=== PATIENT | female | born 1965 | race Caucasian/White ===

== ENCOUNTER 2020-11-22 12:34 | Outpatient (REF) | payer BC, SELFPAY ==
[2020-11-25 12:36] LABS: HPV mRNA E6/E7 rflx Not Detected (Not Detected)
== END 2020-11-22 12:35 | disposition home or self-care (01) ==
LOC: HO.LAB 12:34
PROVIDERS: PCP Internal Medicine; Visit Provider Obstetrics & Gynecology
DX: Z01.419 Encounter for gynecological examination (general) (routine) without abnormal findings (principal)
CPT/HCPCS: 36415; 87624; 88142

== ENCOUNTER 2021-02-22 14:13 | Outpatient (REF) | payer BC, SELFPAY ==
--- NOTE | ~2021-02-22 | MM_ITS ---
EXAMINATION: MM SCREENING DIGITAL BREAST TOMOSYNTHESIS, BILATERAL CLINICAL INFORMATION: Screening. Asymptomatic. The lifetime risk of breast cancer based on the Tyrer-Cuzick Model is 5%. COMPARISON: Mammography: 11/12/2019, 10/16/2018, 08/15/2017, 07/11/2016. TECHNIQUE: Digital mammography is performed in craniocaudal and mediolateral oblique views along with computer-aided detection (CAD). Digital breast tomosynthesis is performed in implant-displaced craniocaudal and implant-displaced mediolateral oblique views along with computer-aided detection (CAD). Synthesized 2D images are generated from the tomosynthesis. FINDINGS: There are scattered areas of fibroglandular density (ACR BI-RADS breast composition Category b). The implant margins are smooth and similar to prior studies. Left breast shows no developing density or interval mass or architectural abnormality. Neither breast shows abnormal calcifications. The axilla and skin contours are unremarkable. The right breast has subtle asymmetric density mid medial breast 4:00 position, suspect incompletely compressed glandular tissue. Patient will be recalled to further characterize. MM/MM tomosynthesis screen imp BI IMPRESSION: 1. Right: Subtle asymmetric density mid medial breast 4:00 position, possibly incompletely compressed glandular tissue. 2. Left: No mammographic evidence of malignancy. ASSESSMENT: BI-RADS 0: Incomplete - Need Additional Imaging Evaluation RECOMMENDATION: 1. Additional views of the right breast (3-D implant displaced spot CC; 3-D implant displaced rolled CC; 3-D implant displaced ML). 2. Targeted ultrasound if warranted after review of the additional views. 3. Radiology department staff will contact the patient for additional imaging. This patient's information was entered into a reminder system with a target due date for their next mammogram.
== END 2021-02-22 14:14 | disposition home or self-care (01) ==
LOC: HO.MAMMO 14:13
PROVIDERS: PCP Internal Medicine; Visit Provider Internal Medicine
DX: Z12.31 Encounter for screening mammogram for malignant neoplasm of breast (principal)
CPT/HCPCS: 77063; 77067

== ENCOUNTER 2021-03-07 12:54 | Outpatient (REF) | payer BC, SELFPAY ==
--- NOTE | ~2021-03-07 | MM_ITS ---
EXAMINATION: MM DIAGNOSTIC DIGITAL BREAST TOMOSYNTHESIS, RIGHT CLINICAL INFORMATION: Recall from screening for subtle asymmetric density mid medial right breast possibly incompletely compressed glandular tissue. COMPARISON: Mammography: 02/22/2021, 11/12/2019 TECHNIQUE: Digital breast tomosynthesis is performed. 2D images are generated from the tomosynthesis. The following views are obtained: 3-D implant displaced rolled CC x2, 3-D implant displaced spot CC. FINDINGS: There are scattered areas of fibroglandular density (ACR BI-RADS breast composition Category b). The additional views show no persistent asymmetric density. There is normal fibroglandular tissue. No mass or architectural abnormality or developing density. Results are discussed with the patient at time of visit. MM/MM tomosynthesis added views R IMPRESSION: Additional views are unremarkable. No persistent asymmetric density. ASSESSMENT: BI-RADS 1: Negative RECOMMENDATION: Routine annual mammography screening. This patient's information was entered into a reminder system with a target due date for their next mammogram.
== END 2021-03-07 12:55 | disposition home or self-care (01) ==
LOC: HO.MAMMO 12:54
PROVIDERS: Visit Provider Internal Medicine
DX: R92.2 Inconclusive mammogram (principal)
CPT/HCPCS: 77061; 77065

== ENCOUNTER 2022-03-01 13:55 | Outpatient (REF) | payer BC, SELFPAY ==
--- NOTE | ~2022-03-01 | MM_ITS ---
EXAMINATION: MM SCREENING DIGITAL BREAST TOMOSYNTHESIS, BILATERAL CLINICAL INFORMATION: Screening. Asymptomatic. The lifetime risk of breast cancer based on the Tyrer-Cuzick Model is 7%. COMPARISON: Mammography: 03/07/2021, 02/22/2021, 11/12/2019, 10/16/2018 TECHNIQUE: Digital mammography is performed in craniocaudal and mediolateral oblique views along with computer-aided detection (CAD). Digital breast tomosynthesis is performed in implant-displaced craniocaudal and implant-displaced mediolateral oblique views along with computer-aided detection (CAD). Synthesized 2D images are generated from the tomosynthesis. FINDINGS: There are scattered areas of fibroglandular density (ACR BI-RADS breast composition Category b). There are no significant masses, abnormal calcifications, or other abnormalities. There are bilateral implants. Implant contours are smooth and similar to prior studies. Parenchymal pattern is similar to prior exams. No significant changes. MM/MM tomosynthesis screen imp BI IMPRESSION: No mammographic evidence of malignancy. ASSESSMENT: BI-RADS 1: Negative RECOMMENDATION: Routine annual mammography screening. This patient's information was entered into a reminder system with a target due date for their next mammogram.
== END 2022-03-01 13:56 | disposition home or self-care (01) ==
LOC: HO.MAMMO 13:55
PROVIDERS: PCP Internal Medicine; Visit Provider Internal Medicine
DX: Z12.31 Encounter for screening mammogram for malignant neoplasm of breast (principal)
CPT/HCPCS: 77063; 77067

== ENCOUNTER 2022-08-19 14:52 | Outpatient (REF) | payer BC, SELFPAY ==
[2022-08-22 01:57] LABS: HPV mRNA E6/E7 rflx Not Detected (Not Detected)
== END 2022-08-19 14:53 | disposition home or self-care (01) ==
LOC: HO.LNP 14:52
PROVIDERS: Visit Provider Obstetrics & Gynecology
DX: Z01.419 Encounter for gynecological examination (general) (routine) without abnormal findings (principal); Z11.51 Encounter for screening for human papillomavirus (HPV); M54.9 Dorsalgia, unspecified
CPT/HCPCS: 87086; 87624; 88142

== ENCOUNTER 2022-10-14 14:36 | Outpatient (REF) | payer BC, SELFPAY | END 2022-10-14 14:37 | disposition home or self-care (01) | LOC: HO.LNP 14:36 | PROVIDERS: Visit Provider Obstetrics & Gynecology | DX: Z12.4 Encounter for screening for malignant neoplasm of cervix (principal); R87.615 Unsatisfactory cytologic smear of cervix | CPT/HCPCS: 88142 ==

== ENCOUNTER 2023-04-04 14:18 | Outpatient (REF) | payer BC, SELFPAY ==
--- NOTE | ~2023-04-04 | MM_ITS ---
EXAMINATION: MM SCREENING DIGITAL BREAST TOMOSYNTHESIS, BILATERAL CLINICAL INFORMATION: Screening. Asymptomatic. The lifetime risk of breast cancer based on the Tyrer-Cuzick Model is 5%. COMPARISON: Multiple prior exams including most recent 03/01/2022. TECHNIQUE: Digital mammography is performed in craniocaudal and mediolateral oblique views along with computer-aided detection (CAD). Digital breast tomosynthesis is performed in implant-displaced craniocaudal and implant-displaced mediolateral oblique views along with computer-aided detection (CAD). Synthesized 2D images are generated from the tomosynthesis. FINDINGS: There are scattered areas of fibroglandular density (ACR BI-RADS breast composition Category b). There are bilateral implants with smooth contours are similar to prior studies. There are no significant masses, abnormal calcifications, or other abnormalities. No developing density or interval architectural abnormality. There is some scattered minor scarring similar to prior exams. The axilla and skin contours are unremarkable. No significant changes. MM/MM tomosynthesis screen imp BI IMPRESSION: No mammographic evidence of malignancy. ASSESSMENT: BI-RADS 2: Benign RECOMMENDATION: Routine annual mammography screening. This patient's information was entered into a reminder system with a target due date for their next mammogram.
== END 2023-04-04 14:19 | disposition home or self-care (01) ==
LOC: HO.MAMMO 14:18
PROVIDERS: Visit Provider Nurse Practitioner Family
DX: Z12.31 Encounter for screening mammogram for malignant neoplasm of breast (principal)
CPT/HCPCS: 77063; 77067

== ENCOUNTER 2024-01-01 13:40 | Outpatient (AMB) | payer BC, SELFPAY ==
--- NOTE | 2024-01-01 13:59 | A.OFFVIS_ITS ---
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 No complaints. Last Pap/HPV was negative in 10/17 Last Mammogram was BI-RADS 2 in 04/18 Last Colonoscopy was a year ago, the recommendation was to repeat in 7 years [facility] Medical History delivery delivered Acid reflux Surgical History Hx of section Family History Father Lung cancer Prostate cancer Mother COPD (chronic obstructive pulmonary disease) Social History Household Members: Spouse Housing: House Alcohol intake: current Alcohol intake frequency: holidays/special occasions only Patient Tobacco Use Status: Never used Tobacco Patient : No service: No Current occupational status: employed Current occupation: assistant sales manager Sexual orientation: Straight/Heterosexual Gender identity: Female Female Reproductive History Menstrual Age of Menarche: 16 control method: none Total pregnancies: 4 Full term: 2 Number of Living Children: 2 Ab spontaneous: 2 Date of last pap smear: 10/15/22 Date of Mammogram: 04/04/23 Review of Systems Const All systems reviewed & are unremarkable except as noted in HPI and below Card Reports as per HPI Resp Reports as per HPI GI Reports as per HPI and Reports no additional complaints Reports as per HPI Physical Exam Vital Signs: Last Vital Signs BP 110/62 01/01/24 14:03 BMI result Body Mass Index 25.6 Const General: cooperative, healthy appearing and comfortable Chest Chest palpation & inspection: normal inspection of the chest and normal palpation of entire chest wall Breast/axilla inspection: normal inspection of the breasts and normal inspection of the axillae Breast/axilla palpation: normal palpation of the breasts, normal palpation of the axillae and no axillary lymphadenopathy Resp Effort & Inspection: normal respiratory effort Auscultation: clear to auscultation bilaterally Percussion: percussion normal Cardio Palpation: normal PMI Rate: regular rate Rhythm: regular rhythm Heart sounds: no murmurs and no rubs Peripheral pulses: Peripheral pulses 2+ throughout GI Inspection: Yes normal to inspection Palpation (GI): Soft to palpation, nontender, no guarding, not rigid and No hepatosplenomegaly present Percussion: Yes normal to percussion Auscultation: normal bowel sounds Rectal Exam - Female: deferred General: Yes bladder normal to palpation External Female Exam: No lesion Speculum Exam - Vagina: normal appearance of the vagina, normal palpation, normal vaginal discharge and not erythematous Speculum Exam - Cervix: normal appearance of the cervix and normal palpation Bimanual exam- vagina & uterus: normal bimanual exam, normal palpation, uterine size normal, bladder normal to palpation, consistency normal and normal palpation Bimanual Exam- Adnexa, other: normal adnexae, no masses and no tenderness Assessment & Plan Assessment & Plan (1) Well woman exam: Code(s): Z01.419 - Encounter for gynecological examination (general) (routine) without abnormal findings Plan: Co testing not indicated this year. Counseled the patient about the recommended dietary allowance of 1200 mg of Calcium & 600 IU of vitamin D. Instructions given the patient to schedule next screening Mammogram in 04/19. The patient was instructed to perform monthly self-breast exams and schedule annual exam in a year. All questions answered and the patient verbalized understanding. Coding Level of Care Code Est Pt Prev Care 40-64y(65932) Diagnoses Well woman exam Z01.419
[2024-01-01 14:03] VITALS: BP 110/62; BMI 25.6
== END 2024-01-01 14:26 | disposition home or self-care (01) ==
LOC: HO.HWS 13:41
PROVIDERS: PCP Internal Medicine; Visit Provider Obstetrics & Gynecology
DX: Z01.419 Encounter for gynecological examination (general) (routine) without abnormal findings (principal)
CPT/HCPCS: 99396

== ENCOUNTER → 2024-01-01 13:40 | Outpatient (BNVA) | payer BC, SELFPAY | PROVIDERS: PCP Internal Medicine; Visit Provider Obstetrics & Gynecology ==

== ENCOUNTER 2024-04-09 14:20 | Outpatient (REF) | payer BC, SELFPAY ==
--- NOTE | ~2024-04-09 | MM_ITS ---
EXAMINATION: MM SCREENING DIGITAL BREAST TOMOSYNTHESIS, BILATERAL WITH BREAST IMPLANTS CLINICAL INFORMATION: Screening. Asymptomatic. COMPARISON: Mammography: This study is compared with prior mammography dating back to 2020. TECHNIQUE: Digital mammography is performed in craniocaudal and mediolateral oblique views along with computer-aided detection (CAD). Digital breast tomosynthesis is performed in implant-displaced craniocaudal and implant-displaced mediolateral oblique views along with computer-aided detection (CAD). Synthesized 2D images are generated from the tomosynthesis. FINDINGS: There are scattered areas of fibroglandular density (ACR BI-RADS breast composition Category b). There are bilateral, mammographically intact silicone breast implants. There are no significant masses, abnormal calcifications, or other abnormalities. MM/MM tomosynthesis screen imp BI IMPRESSION: There are no significant changes from prior study. ASSESSMENT: BI-RADS BI-RADS 1 - Negative RECOMMENDATION: Routine annual mammography screening. 1 year F/U This patient's information was entered into a reminder system with a target due date for their next mammogram.
== END 2024-04-09 14:21 | disposition home or self-care (01) ==
LOC: HO.MAMMO 14:20
PROVIDERS: PCP Nurse Practitioner Family; Visit Provider Nurse Practitioner Family
DX: Z12.31 Encounter for screening mammogram for malignant neoplasm of breast (principal)
CPT/HCPCS: 77063; 77067

== ENCOUNTER → 2024-04-09 14:30 | Outpatient (BNV) | payer BC, SELFPAY | PROVIDERS: PCP Nurse Practitioner Family; Visit Provider Radiology Diagnostic Radiology | DX: Z12.31 Encounter for screening mammogram for malignant neoplasm of breast (principal) | CPT/HCPCS: 77063; 77067 ==

== ENCOUNTER 2025-04-15 14:32 | Outpatient (REF) | payer BC, SELFPAY ==
--- NOTE | ~2025-04-15 | MM_ITS ---
EXAMINATION: MM SCREENING DIGITAL BREAST TOMOSYNTHESIS, BILATERAL CLINICAL INFORMATION: Screening. Asymptomatic. COMPARISON: Mammography: Comparison is made with relevant avialable priors. TECHNIQUE: Digital mammography is performed in craniocaudal and mediolateral oblique views along with computer-aided detection (CAD). Digital breast tomosynthesis is performed in implant-displaced craniocaudal and implant-displaced mediolateral oblique views along with computer-aided detection (CAD). FINDINGS: There are scattered areas of fibroglandular density (ACR BI-RADS breast composition Category b). Bilateral retropectoral silicone implants are normal-appearing. There are no significant masses, abnormal calcifications, or other abnormalities. MM/MM tomosynthesis screen imp BI IMPRESSION: There are no significant changes from prior study. ASSESSMENT: BI-RADS BI-RADS 2 - Benign Findings RECOMMENDATION: Routine annual mammography screening. 1 year F/U This patient's information was entered into a reminder system with a target due date for their next mammogram. Electronically signed by: Stephanie Monteiro DO 04/22/2025 08:34 AM EDT
--- OUTSIDE RECORDS SUMMARY | 2025-04-15 14:35 | XMS_ITS | Data Portability ---
Author Organization [place] - [facility] Address [address] [place] [address] Care Team Providers Care Associate Professor Of Criminal Justice Name Role Phone ROBBY ODONNELL Primary Care Provider Assessment No assessment recorded. Plan of Treatment Reminders Order Date Submit Date Provider Last Modified By Organization Details Last Modified Time Details Appointments None recorded. Lab None recorded. Referral None recorded. Procedures None recorded. Surgeries None recorded. Imaging XR, knee, 4 or more view - room 208 rt knee 4v cw 2024 025 [facility] [address] [facility], [facility] [address], [address], 5 14:04:30 Medication Orders doxycycline hyclate 100 mg tablet 2024 025 [facility] #[id number], [address] [facility] [place], [address], 5 16:13:11 Patient TargetsNo targets recorded. Patient InstructionsNo instructions recorded. Reason for Referral None Reported. Results Created Date Observation Date Name Description Value Unit Range Abnormal Flag Note LastModifiedBy Organization Detail LastModifiedTime 02/29/20 25 02/28/2025 XR, knee, 4 or more view http:/ [email or web address] ?Encry pted=s hAaTro YD8dLq bEUv6g %2BXZw aYqtaq 0bqfl% 2Fg9IQ a4ajBk vP9nXo QUaueC m3YtLR FvZlgJ JJ8mAn HZtai3 9q5770 AC0Kla niMVqG iKiQtr MwF INTERFACE [facility] Office [address] [facility] [address], [place], [address], 02/28/2025 15:38:37 02/29/2002/28/2025 XR, knee, 4 or more view [email or web address] ?Encry pted=s hAaTro YD8dLq bEUv6g %2BXZw aYqtaq 0bqfl% 2Fg9IQ a4ajBk vP9nXo QUaueC m3YtLR FvZlgJ JJ8mAn HZtai3 8l1794 AC0Kla niMVqG iKiQtr MwF INTERFACE [facility] [address] [facility] [address], [place], [address], 02/28/2025 15:38:39 Result Notes Documentation Provider Name and Address Organization Details Recorded Time Xr, Knee, 4 Or More View : [email or web address] Encrypted=pqQrNyuTT1cBffA Uv6g%3WBUjoThqom0lnej%2Fg 0XGi2kzTbmH3uBlUDaowDb9Iq XXWbYpdGOT2uEeOQzqr37z066 1FA4QucerAAkMcKoDbyZnX Not Available [facility] 02/28/2025 15:38: 38 Xr, Knee, 4 Or More View : [email or web address] Encrypted=qrEqTmsYP5aUuhE Uv6g%4EEBrdWjwae6mcyg%2Fg 8RIx7ydUmdI3sZmAByjxVd7Ec BWMcQzsYEJ9qEzQMxct50g760 7XL4YuqevBCvNdAnBzqTtY Not Available [facility] 02/28/2025 15:38: 39 Problems Name Problem SNOMED Code Status Onset Date Resolution Date Notes Provider Name and Address Organization Details Recorded Time No complaints 029281274 Active Status : 'I'; Not Available [facility] 09:21:59 Pain of knee region 0811404186 Active 2024 Beverly Ching PA-C [address], [place], [address] , [facility] 5 15:27:51 Infected bursa 499851935 Active 2024 Beverly Ching PA-C [address], [place], [address] , [facility] 5 16:12:17 Problem Notes None recorded. Medical Equipment None Reported. Allergies Allergen ID Allergen Name Allergen Category Reaction Reaction Severity Criticality Documentation Date Start Date Code Code System Note Provider Name and Address Organization Details Recorded Time 74813 Substance with sulfonami de structure and antibacte rial mechanism of action (substanc e) medicatio n Not available Not available Not available 12/29/20232011 01390 8003 SNOMED Aller gyRea ction : 'Skin React ion, Nause a/Vom iting /Diar ana' ; Not Available [facility] 4 15:00:42 71973 Bactrim medicatio n Not available Not available Not available 12/29/20232022 65783 9 RxNorm Not Available [facility] 4 15:00:42 Medications Name Sig Start Date Stop Date Status Note LastModified by Organization Details LastModified Time doxycycline hyclate 100 mg tablet Take 1 tablet twice a day by oral route. 025 active Not Available Not Available Not Avai lable Vitals Date Recorded Body height Body mass index (BMI) Body weight Provider Name and Address Organization Details Last Updated DateTime 02/28/2025 157.48 cm 24.7 kg/m2 05146.97 g Beverly Ching PA-C [address], [place], [address], [facility] 02/28/2025 15:27:23 Date Recorded Body height Body mass index (BMI) Body weight Provider Name and Address Organization Details Last Updated DateTime 03/07/2025 157.48 cm 24.7 kg/m2 95476.97 g roe oconnor [facility] 03/07/2025 08:20:10 Social History None recorded. Functional Status None recorded. Mental Status None recorded. Family History Nothing Reported. Medical History No medical history recorded. Gynecological HistoryNo gynecological history recorded. Obstetrics History GPAL:G 0 P 0 0 0 0 Past Encounters Encounter ID Performer Location Encounter Start Date Encounter Closed Date Diagnosis/Indication Diagnosis SNOMED-CT Code Diagnosis ICD10 Code Diagnosis Note [id number] [facility] [address] [place] [address] 02/28/2025 15:02:17 03/07/2025 14:04:30 Pain of knee region 5954937749 M25.561 Infected bursa 747963132 M71.161 B96.89 [id number] Beverly Ching PA-C [facility] [address] [place] [address] 03/07/2025 08:10:00 03/17/2025 08:59:54 Infected bursa 873632098 M71.161 B96.89 Health Concerns Section Related Observation LastModified by Organization Detai ls LastModified Time None Recorded Concern Status LastModified by Organization Details LastModified Time None Recorded Advance Directives Directive None Recorded Payers Insurance Date Sequence Insurance Name Policy Number Policy Vazquez Covered Member ID Vazquez Member ID Guarantor Name 03/28/2025 1 [employer] [id number] Marko Emerson Shiela [id number] Marko Idania Shiela Notes Date Note Type Note Provider Name and Address Organization Details Recorded Time 02/28/2025 text/html I am seeing the patient today under the supervision of Dr. Hawkins who was available but who did not see the patient. HPI: Marko presents to the office today for an evaluation of her right knee. She indicates that she bumped her knee 2 years ago resulting in infrapatellar bursitis. She has had a chronic bump in this region ever since the injury. Typically it is not painful or fluctuant. She recently noticed that there was a pimple-like lesion over her infrapatellar bursa. When she applied pressure a large amount of purulent drainage emerged she subsequently was evaluated by her primary care physician who started her on doxycycline late last week. She indicates that the appearance of her knee has greatly improved. She no longer has erythema. Surrounding the region of swelling and there has been no active drainage. She denies pain with weightbearing activities. PMH/PSH/MEDS/ALL/FMH/ SOC HX/ROS are reviewed in detail per my medical intake sheet. General Exam: Vital signs are as noted below Mental status: Alert and lucid. Normal insight, affect and grooming. STRAIGHTEDGE MAN: Gross motor coordination is intact. No spasticity or clonus noted. EXAMINATION: The patient is well appearing and in no apparent distress. Alert and oriented x3. Gait is symmetric. Right knee reveals edema in the infrapatellar region. No surrounding erythema or active drainage. Region is not fluctuant. Upon applying pressure to the surrounding tissue small amount of serosanguineous drainage emerges. No joint effusion ecchymosis, or lesions. Neurovascularly intact. No localized tenderness. ROM is full and pain free. No crepitus noted. Stability intact with anterior, posterior, and varus/valgus stress at both 0 and 30 degrees of flexion. Special testing negative including Steinmann's, flexion pinch, and patella grind maneuvers. 5/5 strength. Calf/leg compartments soft and compressible. X-rays ordered, obtained and reviewed at [facility] today including AP standing, Rosas, and merchant view of bilateral knees. Lateral view of right knee. Images reveal mild degenerative changes. No acute fracture or lesion. IMPRESSION: Right knee infected infrapatellar bursitis PLAN: The diagnosis has been explained to the patient along with conservative treatment options. Fortunately she has been responding favorably to doxycycline. I will prescribe her another 7 days of the medication since her primary care physician only gave her 1 weeks worth. Side effects have been reviewed. I also suggested that she perform wet-to-dry saline dressing changes. I applied a dressing today and educated her how to perform them. I will see her back in the office in 1 week for recheck. She is traveling later this month. She is aware that a last resort option for her condition is surgery. All questions answered. Beverly Ching PA-C [address], [place], [address], [facility] [place] 02/28/2025 22:41:48 03/07/2025 text/html I am seeing the patient today under the supervision of Dr. Batres who was available but who did not see the patient. HPI: Marko presents to the office today for a recheck of her right knee. I last evaluated her 1 week ago. She indicates that she bumped her knee 2 years ago resulting in infrapatellar bursitis. She has had a chronic bump in this region ever since the injury. She recently noticed that there was a pimple-like lesion over her infrapatellar bursa. When she applied pressure a large amount of purulent drainage emerged she subsequently was evaluated by her primary care physician who started her on doxycycline at the beginning of the month. She indicates that the appearance of her knee has greatly improved. She no longer has erythema. There has been no active drainage. She denies pain with weightbearing activities. I extended her doxycycline course another week so that she received a total of 2 weeks of treatment. I also had her perform wet-to-dry saline dressing changes. She indicates that the first couple of days she had a scant amount of drainage, but nothing recent. Pain has improved. She is leaving [facility] and is here for recheck. PMH/PSH/MEDS/ALL/FMH/ SOC HX/ROS are reviewed in detail per my medical intake sheet. General Exam: Vital signs are as noted below Mental status: Alert and lucid. Normal insight, affect and grooming. STRAIGHTEDGE MAN: Gross motor coordination is intact. No spasticity or clonus noted. EXAMINATION: The patient is well appearing and in no apparent distress. Alert and oriented x3. Gait is symmetric. Right knee reveals edema in the infrapatellar region. No surrounding erythema or active drainage. Region is not fluctuant, but is boggy. Upon applying pressure to the surrounding tissue no drainage emerges. No joint effusion ecchymosis, or lesions. Neurovascularly intact. No localized tenderness. ROM is full and pain free. No crepitus noted. Stability intact with anterior, posterior, and varus/valgus stress at both 0 and 30 degrees of flexion. Special testing negative including Steinmann's, flexion pinch, and patella grind maneuvers. 5/5 strength. Calf/leg compartments soft and compressible. X-rays ordered, obtained and reviewed at [facility] previously including AP standing, Rosas, and merchant view of bilateral knees. Lateral view of right knee. Images reveal mild degenerative changes. No acute fracture or lesion. IMPRESSION: Right knee infected infrapatellar bursitis, resolved PLAN: The patient's symptoms have drastically improved since she was initially evaluated by her primary care physician. Despite this, she is bothered by the chronic swelling of her infrapatellar bursitis, which she has had for years. She is looking for definitive treatment. We reviewed the surgical procedure and postoperative recovery of a right knee infrapatella bursectomy. She would like to meet with Dr. Metzger after her vacation to plan for the procedure. We will schedule her an appointment. All questions answered. Beverly Ching PA-C [address], [place], [address], [facility] 03/07/2025 08:34:07 OBGyn Episode No OBEpisode recorded.
== END 2025-04-15 14:33 | disposition home or self-care (01) ==
LOC: HO.MAMMO 14:32
PROVIDERS: PCP Nurse Practitioner Family; Visit Provider Nurse Practitioner Family
DX: Z12.31 Encounter for screening mammogram for malignant neoplasm of breast (principal)
CPT/HCPCS: 77063; 77067

== ENCOUNTER → 2025-04-15 14:45 | Outpatient (BNV) | payer BC, SELFPAY | PROVIDERS: PCP Nurse Practitioner Family; Visit Provider Internal Medicine | DX: Z12.31 Encounter for screening mammogram for malignant neoplasm of breast (principal) | CPT/HCPCS: 77063; 77067 ==